=== PATIENT | male | born 1995 | race Caucasian/White ===

== ENCOUNTER 2020-08-27 21:35 | Emergency (ER) | payer OTHER, SELFPAY ==
[2020-08-27 21:37] VITALS: BP 156/80; PULSE 62; RESP 18; TEMP 36.8; O2SAT 98
--- NOTE | 2020-08-27 22:47 | ED.WOUNDLAC ---
HPI - Wound/Laceration General Chief Complaint: Wound/Laceration Stated Complaint: leg lac Time Seen by Provider: 08/27/20 22:41 Source: patient Mode of arrival: ambulatory Limitations: no limitations History of Present Illness HPI narrative: Patient is a 24-year-old male complaining of a laceration on his left lower leg after a metal band his friend was playing with his his left leg. Patient denies any other pain or injuries, tetanus is up-to-date. Related Data Home Medications Medication Instructions Recorded Confirmed No Home Medications 08/27/20 08/27/20 Allergies Allergy/AdvReac Type Severity Reaction Status Date / Time No Known Allergies Allergy Verified 08/27/20 21:40 Review of Systems Review of Systems: All systems reviewed & are unremarkable except as noted in HPI and below PMFSH Comments Past medical history: None Family history: Noncontributory Social history non-smoker no EtOH or drug use. Exam Const: General: no acute distress Orientation/consciousness: patient oriented x3 HENMT: Head: normal to inspection Eyes: Conjunctivae: conjunctivae normal Resp: Effort & Inspection: normal respiratory effort Skin: General skin exam: normal color Rashes: no rashes Extrem: Other: 5 cm laceration left anterior leg. Neurovascular is intact. Course Vital Signs Vital signs: Vital Signs Temperature 36.8 C 08/27/20 21:37 Pulse Rate 62 08/27/20 21:37 Respiratory Rate 18 08/27/20 21:37 Blood Pressure 156/80 H 08/27/20 21:37 Pulse Oximetry 98 08/27/20 21:37 Temperature 36.8 C 08/27/20 21:37 Pulse Rate 62 08/27/20 21:37 Respiratory Rate 18 08/27/20 21:37 Blood Pressure 156/80 H 08/27/20 21:37 Pulse Oximetry 98 08/27/20 21:37 Procedures Laceration Laceration 1: Date: 08/27/20 Time: 22:50 Site: lower extremity Side (If applicable): left Size (cm): 5 Description: linear Depth: simple, single layer Local Anesthetic: lidocaine 1% Amount of anesthesia used (mL): 8 Pre-repair: wound explored and irrigated ====== Skin Level ====== Skin layer closed with: prolene Number of sutures: 5 ====== Subcutaneous Layer ====== ====== Muscle Layer ====== ====== Tendon Layer ====== MDM - Wound/Laceration Differential Diagnosis Differential diagnosis: Likely laceration and abrasion Discharge Plan Discharge Clinical Impression: Laceration of leg Qualifiers: Encounter type: initial encounter Laterality: left Qualified Code(s): S81.812A - Laceration without foreign body, left lower leg, initial encounter Patient Disposition: Home, Self-Care Condition: Improved Instructions: Laceration (ED) Additional Instructions: Suture removal in 10 days Prescriptions: No Action No Home Medications RF: 0 Follow-up/Referrals: PHYSICIAN NOT ON STAFF,NONSTAFF [Non-Staff] - Time of Disposition: 23:31
[2020-08-27 23:52] VITALS: BP 141/78; PULSE 66; RESP 16; O2SAT 98
== END 2020-08-27 23:52 | disposition home or self-care (01) ==
PROVIDERS: Emergency Provider Emergency Medicine
DX: S81.812A Laceration without foreign body, left lower leg, initial encounter (principal); W22.8XXA Striking against or struck by other objects, initial encounter
CPT/HCPCS: 12002; 99282

== ENCOUNTER 2021-09-26 12:21 | Emergency (ER) | payer OTHER, SELFPAY ==
[2021-09-26 12:35] VITALS: BP 123/60; PULSE 84; RESP 18; TEMP 36.9; O2SAT 100
--- NOTE | 2021-09-26 12:59 | ED.ANIMALBIT ---
HPI - Animal Bite General Chief Complaint: Animal Bite Stated Complaint: needs rabies vaccine Time Seen by Provider: 09/26/21 12:53 Source: patient History of Present Illness HPI narrative: Patient presents with a injury from a raccoon. Patient reports he was taking out the garbage around 1 AM last night when the raccoon came out of his garbage and scratched his hand. He felt his well otherwise he called the health department today and was instructed to get the rabies postexposure treatment. Patient has no complaints at this time denies any pain irritation fevers chills nausea vomiting. Related Data Home Medications Medication Instructions Recorded Confirmed No Home Medications 08/27/20 08/27/20 Allergies Allergy/AdvReac Type Severity Reaction Status Date / Time No Known Allergies Allergy Verified 09/26/21 12:46 Review of Systems Review of Systems: CONSTITUTIONAL: Denies fever, chills, or sweats. EYES: Denies visual changes, redness, or discharge. ENT: Denies rhinorrhea, congestion, sore throat, or otalgia. CARDIOVASCULAR: Denies chest pain, palpitations, or edema. RESPIRATORY: Denies cough or dyspnea. GASTROINTESTINAL: Denies abdominal pain, nausea, vomiting, or diarrhea. GENITOURINARY: Denies dysuria or hematuria. SKIN: Denies rash or itching. MUSCULOSKELETAL: Denies back pain, joint pain, or myalgia. NEUROLOGIC: Denies headache, numbness, dizziness, or weakness. PSYCHIATRIC: Denies anxiety or depression. All systems reviewed & are unremarkable except as noted in HPI and below Exam Narrative: GENERAL: Well-appearing, well-nourished, and in no acute distress. HEAD: Normocephalic, atraumatic. EYES: PERRLA and EOMI. ENT: Nares clear, no rhinorrhea or epistaxis. Mucous membranes moist. EXTREMITIES: Normal range of motion. No edema. Multiple superficial scratches to the left hand no active bleeding no significant erythema no warmth no tenderness. SKIN: Warm, dry, no rash. NEURO: No focal deficits. Alert and oriented x3. PSYCH: Normal mood and affect. Course Reevaluation(s) Reevaluation #1: Patient resting comfortably results and plan reviewed with patient. Patient is comfortable outpatient plan. Date: 09/26/21 Time: 13:20 Vital Signs Vital signs: Vital Signs Temperature 36.9 C 09/26/21 12:35 Pulse Rate 84 09/26/21 12:35 Respiratory Rate 18 09/26/21 12:35 Blood Pressure 123/60 09/26/21 12:35 Pulse Oximetry 100 09/26/21 12:35 Temperature 36.9 C 09/26/21 12:35 Pulse Rate 84 09/26/21 12:35 Respiratory Rate 18 09/26/21 12:35 Blood Pressure 123/60 09/26/21 12:35 Pulse Oximetry 100 09/26/21 12:35 MDM - Animal Bite MDM Narrative Medical decision making narrative: H&P as above, vss, pt looks clinically well, exam with superficial injuries to the left hand, labs/img considered, symptomatic relief available as needed, on reevaluation pt continues to looks clinically well. Suspect isolated superficial wounds given it was a raccoon well give rabies prophylaxis, dns major neurovascular compromise, fracture, necrotizing soft tissue infection. plan to to/monitor as op w/ pcm f/u findings/plan discussed with pt, pt agree/comfortable with plan, return precautions given Discharge Plan Discharge Clinical Impression: Rabies contact, Bite by animal Patient Disposition: Home, Self-Care Condition: Improved Instructions: Antibiotic Form, Rabies Vaccine (By injection), Rabies Immune Globulin (By injection), Animal Bite (ED), Rabies (ED) Additional Instructions: Please return if your symptoms worsen or fail to improve. If you develop a fever, can not eat/drink anything or if you have any other concerns. Please return to the ER on Saturday the for repeat vaccine injection please follow-up with Caitie on the and for repeat injections. Her contact information is [phone] Prescriptions: No Action No Home Medications RF: 0 Follow-up/Referrals: PHYSICIAN,O
[2021-09-26] MEDS: RABIES IMMUNE GLOBULIN/PF 300 UNITS/ML VIAL 400 UNITS IM (13:35)
[2021-09-26] MEDS: RABIES VACCINE (RABAVERT) 2.5 UNITS VIAL IM (13:36)
[2021-09-26] MEDS: RABIES IMMUNE GLOBULIN/PF 1,500 UNITS/5 ML VIAL 1500 UNITS IM (13:38)
== END 2021-09-26 13:52 | disposition home or self-care (01) ==
PROVIDERS: Emergency Provider Emergency Medicine
DX: S60.512A Abrasion of left hand, initial encounter (principal); W55.52XA Struck by raccoon, initial encounter; Z29.14 Encounter for prophylactic rabies immune globulin; Z23 Encounter for immunization
CPT/HCPCS: 90375; 90471; 90675; 96372; 99284

== ENCOUNTER 2021-10-10 10:05 | Outpatient (RCR) | payer OTHER, SELFPAY ==
--- NOTE | 2021-10-03 11:00 | PC.NURSE ---
AMBULATORY TO DRAW STATION ROOM FOR OUTPATIENT RABIES VACCINE # 3. STATES IS FEELING FINE. SCRATCH TO LEFT HAND HEALED. DENIES SYMPTOMS OF REACTION SUCH SITE SORENESS, NAUSEA, VOMITING, BODY ACHES, ITCHING / HIVES, ABDOMINAL PAIN. INSTRUCTED TO RETURN NEXT WEEK FOR 4TH INJECTION - VOICES UNDERSTANDING.
== END 2022-01-08 23:59 | disposition home or self-care (01) ==
LOC: ANHVASCINF 10:05
PROVIDERS: Visit Provider Emergency Medicine
DX: Z20.3 Contact with and (suspected) exposure to rabies (principal); W55.51XA Bitten by raccoon, initial encounter
CPT/HCPCS: 90471; 90675